=== PATIENT | female | born 1980 | race Caucasian/White ===

== ENCOUNTER 2019-11-14 12:44 | Emergency (ER) | payer MEDICAID ==
[2019-11-14] MEDS ORDERED: Lidocaine 2% Jelly 10 ML Urojet MUCMEM ONE (13:34)
[2019-11-14] MEDS ORDERED: Lidocaine 1% with EPINEPHrine 1:100,000 20 ML MDV INJECT ONE (14:15)
--- NOTE | 2019-11-14 14:20 | EDM.PDOC ---
ED HPI GENERAL MEDICAL PROBLEM - General Chief Complaint: Gastrointestinal Problem Stated Complaint: HEMORRHOID Time Seen by Provider: 11/14/19 14:15 Source of Information: Reports: Patient History Limitations: Reports: No Limitations - History of Present Illness INITIAL COMMENTS - FREE TEXT/NARRATIVE: Kasey is a 39-year-old female here for hemorrhoids. First noticed this a few days ago. She states that she cannot take the pain. Has sharp stabbing pain to her anus. She states her last bowel movement was this morning. Has been having soft bowel movements. No blood in her stool. She has had a problem with hemorrhoids in the past. Has never required any surgical intervention. She has been using Preparation H with no relief. No primary care provider. She recently moved here from [place]. Anus Pain Score (Numeric/FACES): 6 - Related Data Allergies Allergy/AdvReac Type Severity Reaction Status Date / Time No Known Allergies Allergy Verified 11/14/19 13:12 Home Meds: Home Meds Hydrocodone/Acetaminophen [Hydrocodon-Acetaminophen 5-325] 1 each PO Q4HR PRN # 15 tablet 11/14/19 [Rx] Hydrocortisone [Anusol-HC] 30 gm RC TID #30 gram 11/14/19 [Rx] Past Medical History - Past Health History Medical/Surgical History: Denies Medical/Surgical History Gastrointestinal History: Reports: Hemorrhoids [employer]GER History: Reports: Social & Family History - Tobacco Use Smoking Status *Q: Current Every Day Smoker Years of Tobacco use: 15 Packs/Tins Daily: 0.5 - Caffeine Use Caffeine Use: Reports: Coffee - Recreational Drug Use Recreational Drug Use: No ED ROS GENERAL - Review of Systems Review Of Systems: See Below GI/Abdominal: Reports: Other (rectal pain). Denies: Hematochezia, Melena ED EXAM, GI/ABD - Physical Exam Exam: See Below Exam Limited By: No Limitations General Appearance: Alert, WD/WN, No Apparent Distress Throat/Mouth: Normal Inspection, Normal Voice, No Airway Compromise Respiratory/Chest: No Respiratory Distress, Lungs Clear, Normal Breath Sounds Cardiovascular: Normal Peripheral Pulses, Regular Rate, Rhythm, No Murmur GI/Abdominal Exam: Normal Bowel Sounds, Soft, Non-Tender Rectal (Female) Exam: Hemorrhoids (thrombosed) Neurological: Alert, Oriented, Normal Cognition Psychiatric: Normal Affect, Normal Mood Skin Exam: Warm, Dry, Normal Color ED ABDOMINAL/GI PROCEDURES - Additional/Other Procedure(s) Procedure(s) (Free Text): The procedure was explained to the patient. Written consent was obtained. The area was cleansed with ChloraPrep and anesthetized with 1 mL of 1% lidocaine with epinephrine. A 3 mm incision was then made near the posterior aspect of the hemorrhoid where the greatest thrombus was found. A small amount of clot was removed. Patient tolerated well. No complications. Course - Vital Signs Last Recorded V/S: Last Vital Signs Temp 98.6 F 11/14/19 13:10 Pulse 71 11/14/19 13:10 Resp 16 11/14/19 13:10 BP 109/76 11/14/19 13:10 Pulse Ox 96 11/14/19 13:10 - Orders/Labs/Meds Meds: Medications Discontinued Medications Generic Name Dose Route Start Last Admin Trade Name Freq PRN Reason Stop Dose Admin Lidocaine HCl 10 ml 11/14/19 13:34 11/14/19 13:53 Xylocaine 2% Jelly MUCMEM 11/14/19 13:35 10 ml ONETIME ONE Administration Lidocaine/Epinephrine 20 ml 11/14/19 14:15 11/14/19 14:50 Xylocaine 1% With Epinephrine 1:100,000 INJECT 11/14/19 14:16 20 ml ONETIME ONE Administration - Re-Assessments/Exams Free Text/Narrative Re-Assessment/Exam: 11/14/19 15:00 I reviewed the patient's option with her. Will give her something for pain, referral to surgery and some Anusol regardless of what she decides. She elected to have the thrombosed area excised. This procedure was performed. She tolerated well. I did offer her pain medication prior to the procedure, however she did drive and needs to drive home today. Discharge instructions as documented. Departure - Departure Time of Disposition: 15:02 Disposition: Home, Self-Care 01 Condition: Fair Clinical Impression: External hemorrhoid - Discharge Information *PRESCRIPTION DRUG MONITORING PROGRAM REVIEWED*: Yes *COPY OF PRESCRIPTION DRUG MONITORING REPORT IN PATIENT [place]: No Prescriptions: Hydrocodone/Acetaminophen [Hydrocodon-Acetaminophen 5-325] 1 each PO Q4HR PRN # 15 tablet PRN Reason: Pain (Severe 7-10) Hydrocortisone [Anusol-HC] 30 gm RC TID #30 gram Instructions: Hemorrhoids, [id number] Referrals: PCP,Not In Area [Primary Care Provider] - Sofi Wilks MD [Physician] - Forms: ED Department Discharge, ED Return to Work/School Form Additional Instructions: Recommend doing sitz baths 2 to 3 times a day. Pnmp-nhs-kbalpyl MiraLax or fiber supplements to have soft bowel movements. Avoid bearing down or constipation as these will worsen the hemorrhoids. Apply the Anusol 3 or 4 times a day after bowel movements. [id number] ibuprofen as needed for pain. For pain not relieved by ibuprofen you may take hydrocodone-acetaminophen 1 tab every 4-6 hours. This medication is habit-forming, take as few of these as needed to relieve the pain. Do not drive or operate machinery within 10 hours of taking this medication. Follow up with surgery. Recommend Dr. Wilks at [facility]. Call [phone] to schedule with him or one of the surgeons at the [facility]. Call [phone] to schedule with these providers. Please return to the ER if your symptoms change or worsen. Sepsis Event Note - Evaluation Sepsis Screening Result: No Definite Risk - Focused Exam Vital Signs: Vital Signs Temp Pulse Resp BP Pulse Ox 11/14/19 13:10 98.6 F 71 16 109/76 96 Date Exam was Performed: 11/14/19 Time Exam was Performed: 18:46
== END 2019-11-14 15:30 | disposition home or self-care (01) ==
LOC: JD.ED 12:44
DX: K64.4 Residual hemorrhoidal skin tags (principal); F17.210 Nicotine dependence, cigarettes, uncomplicated; Z79.899 Other long term (current) drug therapy
CPT/HCPCS: 46083; 99282; 99282-25

== ENCOUNTER 2024-11-23 21:22 | Emergency (ER) | payer SELFPAY ==
[2024-11-23] MEDS: LORazepam 2 MG/ML SDV IM ONE (21:25)
[2024-11-23] MEDS: LORazepam 2 MG/ML SDV IVPUSH ONE ×2 (21:36→21:41)
[2024-11-23] MEDS: Sodium Chloride 0.9% 1,000 ML IV ONE ×2 (21:43→22:05)
[2024-11-23] MEDS ORDERED: EPINEPHrine 1:10,000 1 MG/10 ML Syringe ONE ×10 (22:01→22:45)
[2024-11-23] MEDS ORDERED: Sodium Bicarbonate 8.4% 50 MEQ/50 ML Syringe ONE ×2 (22:07→22:30)
[2024-11-23] MEDS ORDERED: Atropine 0.1 MG/ML 10 ML Syringe ONE ×3 (22:29→23:13)
[2024-11-23] MEDS ORDERED: Sodium Chloride 0.9% 250 ML ONE (22:36)
[2024-11-23] MEDS ORDERED: Naloxone 2 MG/2 ML Syringe ONE (22:45)
[2024-11-24] MEDS: propofoL 1,000 MG/100 ML 0 ML ONE (02:53)
[2024-11-24] MEDS: fentaNYL 100 MCG/2 ML SDV ONE (03:08)
[2024-11-24] MEDS: EPINEPHrine 1:10,000 1 MG/10 ML Syringe ONE (03:09)
[2024-11-24] MEDS: LORazepam 2 MG/ML SDV ONE ×2 (03:09)
[2024-11-24] MEDS: EPINEPHrine 1 MG in Dextrose 5% in Water 99 ML IV SCH (03:27)
== END 2024-11-23 23:15 | disposition expired ==
LOC: EDBD 21:22 → MERGE 21:22 → JD.ED 21:22
DX: I46.9 Cardiac arrest, cause unspecified (principal)
CPT/HCPCS: 31500; 51702; 82947; 92950; 96365; 96372; 96375; 99291; J0461; J2060; J2310; J7030; J3490